=== PATIENT | male | born 1955 | race Caucasian/White ===

== ENCOUNTER 2022-12-28 12:15 | Emergency (ER) | payer MEDICARE, BC, SELFPAY ==
[2022-12-28 12:21] VITALS: BP 139/82; PULSE 79; RESP 16; TEMP 36.7; O2SAT 98
[2022-12-28] MEDS: Ondansetron O.D.T. 4 MG TABEF PO (13:00)
--- NOTE | 2022-12-28 13:15 | ED.GENADUL_ITS ---
Discharge Plan Disposition Patient Disposition: Home Condition: Improving Discharge Details Clinical Impression: Benign paroxysmal positional vertigo of right ear, Acute effusion of right ear Primary Care Provider: [place],Local ED Provider: Trupti Soto Home Meds and New Rx's Prescriptions: New ondansetron 4 mg tablet,disintegrating 4 mg PO Q8H PRN (Reason: nausea and vomiting) 4 Days Qty: 9 0RF Rx Instructions: Take 1 tablet up to 3 times daily as needed for nausea and vomiting 20 minutes prior to meals. meclizine 25 mg tablet 25 mg PO BID PRN (Reason: dizziness) Qty: 10 0RF Rx Instructions: Take 1 tablet up to twice daily as needed for dizziness. This may make you sleepy. No Action tamsulosin [Flomax] 0.4 mg Capsule 0.4 mg PO PRN PRN Discharge Instructions Instructions: Benign Paroxysmal Positional Vertigo (ED) Additional Instructions: Continue taking the Sudafed, please take the nausea medication and meclizine as directed. You do have some fluid behind your right ear. Does not appear to be infected at this time. Please follow-up with ear nose and throat in the next 1 to 2 weeks. Follow up with primary care provider in 3-5 days. Return to ED sooner if any worsening or concerns. Increase oral fluids. Insert ibuprofen so Referrals: Miguel Guillen MD [ [facility] STAFF PHYSICIAN] - 2 weeks Discharge Data Discharge Date/Time-TO BE ENTERED AT DEPARTURE: 12/28/22 14:35 Medical Decision Making 67-year-old male presents to the ER with a chief complaint of dizziness, tinnitus in his right ear. Nausea. He did take a Sudafed this morning and used Afrin. He has been swimming [place] the last couple of days. No focal neurodeficits noted on exam. He does have positional vertigo. Zofran ODT was given when he first presented. No foreign body noted in the right ear canal, he does have some effusion behind the tympanic membrane. No nystagmus. No numbness tingling weakness in the extremities. Denies any recent head injuries. Patient reports he has seen ENT in the past this has happened in the past. Has had a M?ni?re's work-up. He did take Sudafed and Afrin prior to arrival. Zofran ODT given prior to my evaluation which seems to be improving his symptoms. Meclizine 25 mg p.o. ordered. Differential diagnosis includes but not limited to benign positional vertigo, external otitis, central vertigo which is unlikely due to no focal neurodeficits, otitis effusion sinusitis. Patient is from out of town. They are from [place] and plans to go to [facility] and then fly home. 1405: Patient reevaluation he reports feeling somewhat better he was able to ambulate out to the waiting room. We will prescribe him meclizine and Zofran. No need for imaging at this time. Diagnosed with benign positional vertigo and right ear effusion will encourage him to follow-up with ENT. Patient feels better while laying down. He remains neurologically intact. I did give him Zofran and meclizine to go. Discussed with and patient home care and follow-up care. I did discuss strict return instructions if no better in the next 1 to 2 days or if worse at any time with confusion. This text was generated using [employer] system, please disregard any oddities of phrase or misspellings. All of their questions were answered to the best of my ability. HPI General Date/Time Provider Initiated Documentation: 12/28/22 12:41 . Limitations to Documentation: no limitations . Information obtained by: patient, RN notes reviewed and old records reviewed . HPI Narrative: 67-year-old male presents to the ER with a chief complaint of dizziness, tinnitus in his right ear. Nausea. He did take a Sudafed this morning and used Afrin. He has been swimming at [place] the last couple of days. No focal neurodeficits noted on exam. He does have positional vertigo. Zofran ODT was given when he first presented. No foreign body noted in the right ear canal, he does have some effusion behind the tympanic membrane. No nystagmus. No numbness tingling weakness in the extremities. Denies any recent head injuries. Related Data Home Medications Medication Instructions Recorded Confirmed meclizine 25 mg tablet 25 mg PO BID PRN dizziness #10 tabs 12/28/22 ondansetron 4 mg disintegrating 4 mg PO Q8H PRN nausea and 12/28/22 tablet vomiting 4 days #9 tabs tamsulosin 0.4 mg capsule (Flomax) 0.4 mg PO PRN PRN 12/28/22 12/28/22 Previous Rx's Medication Instructions Recorded meclizine 25 mg tablet 25 mg PO BID PRN dizziness #10 tabs 12/28/22 ondansetron 4 mg disintegrating 4 mg PO Q8H PRN nausea and 12/28/22 tablet vomiting 4 days #9 tabs Allergies Allergy/AdvReac Type Severity Reaction Status Date / Time No Known Allergies Allergy Unverified 12/28/22 12:27 General Stated Complaint: EarProblem VIVIANA: 3 Review of Systems ENT Ears, Nose, Mouth, and Throat: Reports as per HPI, Reports vertigo, Reports dizziness, Reports otalgia, Reports tinnitus (Right) and Reports sinus pressure Neurologic Neurologic: Reports as per HPI, Reports vertigo and Reports dizziness PFSH All Active Problems (Updated 12/28/22 @ 14:10 by Trupti Soto NP) Benign paroxysmal positional vertigo of right ear (Acute) Acute effusion of right ear (Acute) Social History Smoking/Tobacco Use Status: Never Smoking risk assessment performed?: Yes Alcohol Intake: current Alcohol Intake frequency: holidays/special occasions only Drug use: Never Substance use type: does not use Do you feel safe at home: Yes Do you feel safe in your relationship?: Yes Exam [facility] Head: normal to inspection Ears: TM normal on the left, no periauricular adenopathy, external ear abnormal (Small amount of cerumen in the ear canal, no other foreign body noted able ) and TM abnormal (Right) with fluid behind the TM on the right, retracted on the right and scarred; not erythematous, with no loss of landmarks and not perforated General nose exam: external nose normal and nares normal Face and sinus: normal facial exam Mouth: oral mucosae normal, lip normal and tongue normal Teeth and gingiva: dentition normal Throat: posterior oropharynx normal, tonsils normal and uvula midline Resp Effort & Inspection: normal respiratory effort and able to speak in complete sentences Cardio Rate: regular rate Rhythm: regular rhythm Heart Sounds: S1 normal and S2 normal Neuro General: patient alert, patient awake, patient oriented x3, gait normal, moves all extremities, normal light touch, pain and propioception, no focal motor deficits, CN's II-XI intact bilaterally and Julian Hallpike (Positive) Cranial Nerves: CN's II-XI intact bilaterally, PERRL, no nystagmus, facial strength normal, tongue midline, gag reflex normal and able to elevate shoulders bilaterally Cognition: normal cognition Speech: speech normal Gait: normal gait Motor: muscle tone normal throughout, strength 5/5 throughout, no pronator drift and no fasciculations Sensory Exam: no sensory deficits noted Course Vital Signs Vital signs: Vital Signs Temperature 36.7 C 12/28/22 12:21 Pulse 79 12/28/22 12:21 Respiratory Rate 16 12/28/22 12:21 Blood Pressure 139/82 12/28/22 12:21 Pulse Oximetry 98 12/28/22 12:21 Temperature 36.7 C 12/28/22 12:21 Temperature Source Skin 12/28/22 12:21 Pulse 79 12/28/22 12:21 Respiratory Rate 16 12/28/22 12:21 Respiratory Effort Normal 12/28/22 12:28 Blood Pressure 139/82 12/28/22 12:21 Blood Pressure Position Sitting 12/28/22 12:21 Pulse Oximetry 98 12/28/22 12:21 Oxygen Delivery Method Room Air 12/28/22 12:21 Oxygen Flow Rate 0 12/28/22 12:21 Pain Level 7 12/28/22 12:21
[2022-12-28] MEDS: Meclizine 25 MG TAB PO ×2 (13:20→14:32)
[2022-12-28 14:14] VITALS: BP 129/67; PULSE 82; RESP 16; O2SAT 98
[2022-12-28] MEDS: Ondansetron O.D.T. 4 MG TABEF, 3 TABS/BTL PO (14:32)
--- NOTE | 2022-12-28 17:09 | NUR.NOTE ---
Nursing Note: Scanned to email ([email or web address]) referral for vertigo, ear effusion right/ 1 to 2 weeks. No phone number listed in account, pt given office phone number to call. Provider is aware.
== END 2022-12-28 14:35 | disposition home or self-care (01) ==
PROVIDERS: Emergency Provider Registered Nurse Emergency
DX: H92.01 Otalgia, right ear (principal); H81.11 Benign paroxysmal vertigo, right ear; R11.0 Nausea; H92.21 Otorrhagia, right ear
CPT/HCPCS: 99282